=== PATIENT | male | born 1995 | race African-American/Black ===

== ENCOUNTER 2023-07-13 12:01 | Emergency (ER) | payer BC, SELFPAY ==
[2023-07-13 12:02] VITALS: BP 132/79; PULSE 90; RESP 18; TEMP 37.1; O2SAT 99
--- NOTE | 2023-07-13 13:30 | ED.EYEPROB ---
HPI - Eye Problem General Chief complaint: Eye Problems Stated complaint: cut to L eye Time Seen by Provider: 07/13/23 12:07 History of Present Illness HPI Narrative: 28-year-old male presenting with left eye injury. States his 2-year-old son accidentally poked him in the left eye. States he had immediate pain to the left eye with light sensitivity and tearing. No visual changes. Does not were contacts. No further complaints or injuries. Related Data Allergies Allergy/AdvReac Type Severity Reaction Status Date / Time No Known Allergies Allergy Verified 07/13/23 12:01 Review of Systems Review of Systems: All systems reviewed & are unremarkable except as noted in HPI and below Exam Narrative: GENERAL: Well-appearing, pleasant cooperative HEAD: Normocephalic, atraumatic. EYES: PERRLA and EOMI. triangular abrasion to left cornea ENT: Grossly unremarkable NECK: Supple. CHEST: No respiratory distress. HEART: Regular rate and rhythm EXTREMITIES: Normal range of motion. SKIN: Warm, dry, no rash. NEURO: Alert and oriented x3. PSYCH: Normal mood and affect. Course Vital Signs Vital signs: Vital Signs Temperature 98.8 F 07/13/23 12:02 Pulse Rate 90 07/13/23 12:02 Respiratory Rate 18 07/13/23 12:02 Blood Pressure 132/79 07/13/23 12:02 Pulse Oximetry 99 07/13/23 12:02 Oxygen Delivery Room Air 07/13/23 12:02 Temperature 98.8 F 07/13/23 12:02 Pulse Rate 90 07/13/23 12:02 Respiratory Rate 18 07/13/23 12:02 Blood Pressure 132/79 07/13/23 12:02 Pulse Oximetry 99 07/13/23 12:02 Oxygen Delivery Room Air 07/13/23 12:02 MDM - Eye Problem MDM Narrative Medical decision making narrative: 28-year-old male presenting with left eye injury. Exam remarkable for the above. He does have an obvious abrasion to the left cornea. He denies any visual changes. Unable to participate with visual acuity due to pain. Does not wear contacts. Will start him on ofloxacin drops advised close Ophthalmology follow-up. Appropriate return precautions given. Patient voices understanding and is agreeable with plan. Discharged in stable condition. Differential Diagnosis Differential diagnosis: Likely corneal abrasion, conjunctivitis, corneal ulcer and ruptured globe Critical Care Time Critical Care Time Critical Care Time: No Discharge Plan Discharge Clinical Impression: Corneal abrasion Patient Disposition: Home, Self-Care Condition: Stable Instructions: Antibiotic Form, Corneal Abrasion (DC) Additional Instructions: Please apply the drops as prescribed. Please follow-up closely with Ophthalmology at [facility]. Their number is [phone]. Prescriptions: New ofloxacin 0.3 % drops See Rx Instructions .ROUTE .COMPLEX Qty: 5 0RF Rx Instructions: put 1-2 drps into affected eye(s) every 2-4 h x 2 days, then 1-2 drps 4 times/day days 3-7 Follow-up/Referrals: PHYSICIAN NOT ON STAFF,NONSTAFF [Primary Care Provider] - Stand Alone Forms: Work/School Release IP
[2023-07-13] MEDS: OFLOXACIN 0.3% OPHTH SOLN 5 ML BTL 2 DROP LEFT EYE (13:41)
== END 2023-07-13 14:01 | disposition home or self-care (01) ==
PROVIDERS: Emergency Provider Emergency Medicine
DX: S05.02XA Injury of conjunctiva and corneal abrasion without foreign body, left eye, initial encounter (principal); W51.XXXA Accidental striking against or bumped into by another person, initial encounter
CPT/HCPCS: 99283; A9270